=== PATIENT | female | born 2000 | race Caucasian/White ===

== ENCOUNTER 2018-04-03 20:08 | Emergency (ER) | payer MEDICAID ==
[~2018-04-03] VITALS: Ht 172.7 cm; Wt 74.8 kg
[2018-04-03 20:32] VITALS: BP 108/70
--- NOTE | 2018-04-03 20:34 | NUR ---
TO LOBBY A/W BED, KAVITHA ALLEN NOTED
--- NOTE | 2018-04-03 20:55 | NUR ---
18 Y/O F W/C/O DIFF OF BREATHING FOR 2 WEEKS ASSSOCIATED WITH DIZZINESS. PT DENIES N/V/D; AAOX4, PERRL, WITH EVEN AND STEADY GAIT; BREATHING UNLABORED; HR EVEN AND REGULAR, BL PERIPHERAL PULSES PRESENT; PT DENIES ANY FEVER, CP, AT THIS TIME; PT STATES 0/10 PAIN AT THIS TIME; VSS; PATIENT POSITIONED FOR COMFORT; HOB ELEVATED; BEDRAILS UP X2; BED DOWN.
--- NOTE | 2018-04-03 20:55 | NUR ---
PT TAKEN TO BED 3
--- NOTE | 2018-04-03 21:00 | NUR ---
PT SITTING IN BED WITH HANDS CROSSED AND FEET RELAXED TALKING WITH BOYFRIEND. NO SOB, DISTRESS, OR GRIMACING NOTED.
--- NOTE | 2018-04-03 21:45 | NUR ---
PT SITTING IN BED WITH HANDS CROSSED AND FEET RELAXED TALKING WITH BOYFRIEND. NO SOB, DISTRESS, OR GRIMACING NOTED.
[2018-04-03 22:12] VITALS: BP 110/69
--- NOTE | 2018-04-03 22:13 | NUR ---
Patient discharged with v/s stable. Written and verbal after care instructions given and explained. Patient verbalized understanding. Ambulatory with steady gait. All questions addressed prior to discharge. Advised to follow up with PMD.
== END 2018-04-03 22:13 | disposition home or self-care (01) ==
LOC: MED 20:08
DX: R06.02 Shortness of breath (principal); R07.89 Other chest pain; R42 Dizziness and giddiness
CPT/HCPCS: 71045; 93005; 99283; Q0092

== ENCOUNTER 2019-05-21 20:25 | Emergency (ER) | payer MEDICAID, OTHER ==
[~2019-05-21] VITALS: Ht 170.2 cm; Wt 85.7 kg
[2019-05-21 20:28] VITALS: BP 107/66
--- NOTE | 2019-05-21 21:39 | NUR ---
PT AMBUALTED TO
--- NOTE | 2019-05-21 21:55 | NUR ---
19 Y/O FEMALE C/O EARACHES, HEADACHES, BODY ACHES, FEVER/CHILLS AND NON PRODUCTIVE COUGH X2 WEEKS. PT STATES SHE TOOK IBUPROFEN X1 AT 1:30 TODAY. NO STATED MEDICAL HISTORY. NKIrina.
[2019-05-21 22:17] VITALS: BP 115/64
--- NOTE | 2019-05-21 22:17 | NUR ---
Patient discharged with v/s stable. Written and verbal after care instructions given and explained. Patient alert, oriented and verbalized understanding of instructions. Ambulatory with steady gait. All questions addressed prior to discharge. ID band removed. Patient advised to follow up with PMD. Rx of AFRIN, NAPROSYN, AND AUGMENTIN given. Patient educated on indication of medication including possible reaction and side effects. Opportunity to ask questions provided and answered.
== END 2019-05-21 22:17 | disposition home or self-care (01) ==
LOC: MED 20:25
DX: J32.9 Chronic sinusitis, unspecified (principal)
CPT/HCPCS: 87804; 99283